=== PATIENT | female | born 1995 | race Caucasian/White ===

== ENCOUNTER → 2017-02-24 | Outpatient (CLI) | payer BC ==
[~2017-02-24] MED LIST: HYDR-4380 PO
--- NOTE | 2017-02-26 09:19 | History & Physical Bridge Note ---
H&P Re-Evaluation Bridge Note: I have examined the patient, reviewed the History & Physical and in the interval since the performance of the History & Physical I have noted the following changes of clinical significance: No changes noted
--- NOTE | 2017-02-26 12:01 | [facility] Operative Report ---
Operative Report Operative Date Feb 26, 2017. Pre-Operative Diagnosis Supination external rotation stage IV equivalent injury left ankle distal fibular fracture Post-Operative Diagnosis Same Procedure(s) Performed Examination under anesthesia and open reduction internal fixation of left distal fibula Surgeon alicia Documentation Coordinator Surgeon(s) sridhar Estimated Blood Loss 10 mL Findings Left distal fibular fracture with widening of the medial clear space Specimens None Drains none Anesthesia laryngeal mask with popliteal block Complication(s) None Disposition Recovery Room / PACU Implants Synthes 6-hole one third tubular locking plate with 7 screws Indications Patient's a 21-year-old female who is a little over 2 weeks out from injury to her left ankle. She was seen while on vacation. She presented a few days ago to the office for evaluation. She has tenderness of the medial ankle joint and also has static widening of the medial clear space indicative of an unstable distal fibular fracture with medial deltoid ligament injury. Treatment options risks and benefits were discussed and she elected to proceed with operative intervention which was advised Description of Procedure Informed consent was obtained. The patient was identified as Carolina Flynn. She identified the operative site as the left ankle and I marked with my initials. A preoperative surgical timeout was performed. Appropriate dose of IV antibiotics was given. She was positioned supine on the operating room table. A tourniquet was applied to left thigh and a bump under the left hip. Leg was prescrubed and then prepped and draped in the usual sterile fashion. DVT prophylaxis was not indicated. The examination under anesthesia with fluoroscopic guidance demonstrated riding of the medial clear space with lateral stress on the distal fibular fracture fragment. Fluoroscopic guidance was utilized throughout the procedure. There was mild swelling of the ankle but skin intact. Limb was exsanguinated with the Esmarch tourniquet inflated to 225 mmHg. A longitudinal incision was made paralleling the distal fibula approximately 10 cm in length. Immediately on not dissecting through the subcutaneous tissues a prominent superficial peroneal nerve was identified coursing from posterior proximal to anterior distal directly across the fracture area. This was carefully dissected out proximally and mobilized. It was protected and retracted with the anterior skin flap. Subperiosteal exposure the fracture was then performed using a combination of sharp and blunt dissection. The fracture site was opened and cleaned of hematoma and early callus formation. More dissection than is typical was done in order to improve mobility of the fracture to enable an adequate anatomic reduction. The anterior calyculus was identified as well as the posterior spike. The fracture site was irrigated. It was then anatomically reduced and held with a bone tenaculum. It was then fixated with a bicortical 3.5 mm screw. This total fracture fragment was only large enough to accept 2 screws. I therefore used a one third tubular locking plate. I prevent the plate affixed to the lateral fibula. I applied one screw proximally and distally to bring the plate down to the bone. These were a 4.0 cancellus screw distally and a 3.5 mm bicortical screw proximally. 2 additional cortical screws were placed proximally and one locking screw was placed in the second hole from the bottom. The fracture was anatomically reduced there was no posterior or medial fracture. No other fractures were identified. The medial clear space was realigned anatomically and did not open up stressing. It was equal to the opposite side of the ankle. The syndesmosis was stressed and was found to be stable. Test Engineer fluoroscopic images were obtained. The tourniquet was let down and meticulous hemostasis was performed with pressure and electrocautery the wound was irrigated with sterile saline in copious fashion. The superficial peroneal nerve was protected throughout the procedure. It was kept moist. It was retracted with the anterior skin flap and 2-0 Vicryl was utilized to close the periosteum over the plate throughout its entire length. The nerve transversed across the front fibula from the most proximal screw to the third most proximal screw where it overlie the plate. The skin was then closed with interrupted 4-0 Vicryl sutures taking care to protect the nerve. The skin was then closed with a running 3-0 Prolene subcuticular stitch. The leg was cleaned with wet and dry sponges and a well-padded posterior splint with the ankle in neutral was applied. The patient was then awakened from anesthesia without difficulty taken to recovery in stable condition there were no specimens or complications counts were correct in the case blood loss was 10 mL. The conclusion operation I spoke the patient's mother and informed her of my findings. Detailed postoperative instructions were given. She'll be nonweightbearing for the time being. She will follow up next week at which time her dressing will be changed and she will be converted to a boot. At that time she will likely be able to begin early range of motion and weightbearing. I attest to the content of the Intraoperative Record and any orders documented therein. Any exceptions are noted below.
== END | disposition home or self-care (01) ==
LOC: C.RDSM 15:42
PROVIDERS: ATTEND Physical Medicine & Rehabilitation Sports Medicine
DX: S82.832A Other fracture of upper and lower end of left fibula, initial encounter for closed fracture (principal); X58.XXXA Exposure to other specified factors, initial encounter; M25.572 Pain in left ankle and joints of left foot

== ENCOUNTER → 2017-02-26 | Day surgery (SDC) | payer BC ==
[2017-02-25 13:16] VITALS: Ht 157.5 cm; Wt 59.1 kg
[~2017-02-26] VITALS: Ht 157.5 cm; Wt 59.1 kg
[~2017-02-26] MED LIST changes: +ATROPINE SULFATE 0.1 MG/ML 5ML SYR IV PRN; +BUPIVACAINE 0.5 % 5 MG/1 ML MPF 30ML VIAL ONE; +BUPIVACAINE/EPINEPHRINE 0.5% MPF 1:200,000 10 ML VIAL ONE; +CEFAZOLIN 1000MG/55 ML D5W IV SCH; +DEXAMETHASONE SOD INJ 4 MG/ML VIAL ONE; +EpHEDrine SULFATE INJ 50 MG/ML AMP IV PRN; +FENTANYL CITRATE INJ 50 MCG/1 ML 2 ML VIAL IV PRN; +FENTANYL CITRATE INJ 50 MCG/1 ML 2 ML VIAL ONE; +KETOROLAC TROMETHAMINE 30 MG/ML VIAL ONE; +LACTATED RINGER'S 1000ML 1,000 ML IV SCH; +LIDOCAINE HCL 2% 2 ML VIAL (20MG/ML) ONE; +MIDAZOLAM HCL 1 MG/ML 2ML VIAL ONE; +MoRPHine SULFATE 2 MG/ML CARP IV PRN; +ONDANSETRON INJ 2 MG/ML 2 ML VIAL IV PRN; +ONDANSETRON INJ 2 MG/ML 2 ML VIAL ONE; +OXYCODONE/ACETAMINOPHEN 5-325 TAB PO PRN; +PATIENT'S ALLERGY INFO NEEDS ENTERED SCH; +PATIENT'S HEIGHT AND/OR WEIGHT NEEDED SCH; +POVIDONE-IODINE OP SOLN 30 ML BTL ONE; +PROMETHAZINE HCL INJ 6.25 MG in SODIUM CHLORIDE 0.9% 50ML 50 ML IV PRN; +PROPOFOL IV EMULSION 10 MG/ML 20 ML VIAL IV ONE; +SODIUM CHLORIDE 0.9% 1000ML 1,000 ML IV SCH
--- NOTE | 2017-02-26 12:04 | Discharge Instructions-SurgCtr ---
Discharge Instructions Date of Service Feb 26, 2017. Visit Reason for Visit: Left Distal Fibula Fx Discharge Discharge Diagnosis / Problem: left distal fibula fracture Discharge Goals Goal(s): Decrease discomfort, Improve function, Increase independence Activity Recommendations Activity Limitations: per Instructions/Follow-up section Weightbearing Status: Left non-weightbearing (lower extremity) Anesthesia . Post Anesthesia Instructions: If you have had General Anesthesia or IV Sedation: * Do not drive today. * Resume driving when surgeon permits. * Do not make important decisions or sign legal documents today. * Call surgeon for: 1. Temperature elevations greater than 101 degrees F. 2. Uncontrollable pain. 3. Excessive bleeding. 4. Persistent nausea and vomiting. 5. Medication intolerance (nausea, vomiting or rash). * For nausea and vomiting use only clear liquids such as: tea, soda, bouillon until nausea subsides, then gradually increase diet as tolerated. * If you have any concerns or questions, call your surgeon's office. If physician is unavailable and it is an emergency, call 911 or go to the nearest emergency room. . Instructions / Follow-Up Instructions / Follow-Up DIET: * Resume previous diet. MEDICATIONS: * Please take your prescriptions as instructed at your pre-op appointment and/ or see medication discharge instructions listed above. * If concerns develop, call your physician's office at . SPECIAL CARE INSTRUCTIONS: * Ice to left ankle as needed for pain and swelling * Elevate left ankle above heart to relieve pain and swelling. * Keep dressing clean, dry, intact. Keep splint on at all times. * NO WEIGHT ON LEFT LEG. Use crutches to assist with ambulation. Okay to use a scooter. * Wiggle toes left foot frequently. Okay for full range of motion of left knee. * Your surgical extremity may be discolored due to prepping agents used on the skin. A bluish-green tint is a normal variant and should not cause alarm. Call your doctor at [phone] if: * Temperature above 101 degrees * Pain not relieved by pain medicine ordered * There is increased drainage or redness from any incision * You have any unanswered questions, problems or concerns. FOLLOW UP VISIT: * If not already scheduled, please call the office at to schedule a follow-up appointment. * You have a follow-up appointment with Dr. Joseph on 03/13/2017 at 10:45 AM. * You will start physical therapy on 03/03/2017 at 3:30 PM. Diet Recommendations Home Diet: no limitations, resume previous diet Procedures Procedures Performed: Left Ankle Open Reduction Internal Fixation Pending Studies Studies pending at discharge: no Medical Emergencies . Who to Call and When: Medical Emergencies: If at any time you feel your situation is an emergency, please call 911 immediately. . Non-Emergent Contact Non-Emergency issues call your: Surgeon Call Non-Emergent contact if: temperature is above 101, your pain is not controlled, your pain is concerning you, wound has increased drainage, wound has increased redness, wound has increased pain, you have any medication questions . . "Provider Documentation" section prepared by Ava Galvan. . [place] Drug Monitoring Program Search Results: patient reviewed within database, no issues identified
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
[2017-02-26 12:48] VITALS: TEMP 36.4
[2017-02-26 13:22] VITALS: BP 112/77; PULSE 63; O2SAT 100
--- NOTE | 2017-02-26 13:22 | Anesthesia Progress Nt - [facility] ---
Anesthesia Post Op Note Date & Time Feb 26, 2017 at 13:21 Vital Signs Pain Intensity: 0 Vital Signs Past 12 Hours Date Time Temp Pulse Resp B/P (MAP) Pulse Ox O2 Delivery O2 Flow Rate FiO2 02/26/17 12:48 36.4 60 16 117/80 (92) 100 Room Air 02/26/17 12:36 59 15 02/26/17 12:36 36.5 67 16 116/71 100 Room Air 02/26/17 12:36 59 15 100 02/26/17 12:35 116/71 02/26/17 12:31 60 15 100 02/26/17 12:31 60 15 02/26/17 12:30 109/76 02/26/17 12:26 61 18 99 02/26/17 12:26 61 18 02/26/17 12:25 116/73 02/26/17 12:21 67 14 02/26/17 12:21 66 14 100 02/26/17 12:20 119/78 02/26/17 12:18 115/69 02/26/17 12:16 70 17 02/26/17 12:16 70 17 100 02/26/17 12:11 73 20 02/26/17 12:11 73 20 126/120 98 02/26/17 12:06 78 15 02/26/17 12:06 78 15 100 02/26/17 12:05 122/81 02/26/17 12:02 116/88 02/26/17 12:01 84 02/26/17 12:01 36.4 88 16 116/88 100 Mask 6 02/26/17 12:01 84 92 02/26/17 09:56 0 02/26/17 09:55 0 02/26/17 09:50 71 24 100 02/26/17 09:50 71 02/26/17 09:46 122/82 02/26/17 09:45 82 17 99 02/26/17 09:45 79 02/26/17 09:40 71 10 118/77 96 02/26/17 09:40 72 02/26/17 09:36 114/81 02/26/17 09:35 75 19 02/26/17 09:34 121/76 02/26/17 08:08 36.8 91 16 108/70 (83) 98 Room Air Notes Mental Status: alert / awake / arousable, participated in evaluation Pt Amnestic to Procedure: Yes Nausea / Vomiting: adequately controlled Pain: adequately controlled Airway Patency, RR, SpO2: stable & adequate BP & HR: stable & adequate Hydration State: stable & adequate Anesthetic Complications: no major complications apparent block working well in pacu
--- NOTE | 2017-03-06 15:24 | [facility] Operative Report ---
Operative Report Operative Date Mar 06, 2017. Pre-Operative Diagnosis Left Ankle Fracture Post-Operative Diagnosis Same Procedure(s) Performed Left Ankle Open Reduction Internal Fixation Surgeon Dr. Edwardo Joseph Fur Blowing Machine Operator Surgeon(s) Ava Galvan PA-C Estimated Blood Loss 10 ml Findings Displaced left distal fibular fracture with widening of the medial clear space Specimens None Drains none Anesthesia laryngeal mask Complication(s) None Disposition Recovery Room / PACU Implants Synthes small fragment screws and plate Indications Patient is a 21-year-old female 2 weeks status post injury to her left ankle. She was seen elsewhere and sought follow-up care with me. Evaluation in the office showed a mildly displaced distal fibular fracture with widening of the medial clear space confirmed with stress radiographs. Operative intervention was recommended and she elected to proceed Description of Procedure She was identified as a police Gee. She identified the operative site as left ankle. I marked with my initials. Preoperative surgical timeout was performed. Appropriate dose of IV antibiotics was given. Informed consent was obtained. DVT prophylaxis with early mobility. The left leg was prescribed prepped and draped in major sterile fashion. A tourniquet was applied to the left thigh she was positioned supine on the operating room table The limb was exsanguinated with the Esmarch tourniquet inflated 225 mmHg. A lateral incision was made paralleling the subcutaneous shaft of the fibula. Initially upon entering the skin the superficial peroneal nerve was identified crossing of the fibula of immediately deep subcutaneous tissues. This was dissected out proximally and distally preserved throughout the procedure. At the end of the procedure it coursed over the upper 3 screws of the fibular plate. After dissecting out the superficial peroneal nerve subperiosteal exposure the fracture site was performed. Since his been 2 weeks since the injury I did a little bit more soft tissue releasing to ensure adequate mobilization of the fracture. The fracture was a simple Lerma B type non- comminuted fracture. The fracture site was opened and cleaned out of soft tissue and hematoma. The fracture was then anatomically reduced after irrigating it and fixated with a 3.5 mm bicortical like screw. A this distal fibular locking plate was selected. I placed one 4.0 cancellus screw distally to secure the plate down to the bone. I placed 1 cortical screw proximally to the same. I then placed a locking screw distally. The distal fracture fragment was small and only 2 screws could be placed into the distal fracture fragment. I therefore had one locking screw and one cancellus screw distally. 2 additional bicortical screws were placed proximally for excellent fixation. The medial clear space was now anatomically aligned and did not open with stressing. The syndesmosis was checked and was stable to stressing. The wound was irrigated with sterile saline. The periosteum and soft tissues were reapproximated over the fibular plate using 0 and 2-0 Vicryl. The nerve was then left to rest on top of this of the level of the upper 3 screws. The skin was then closed with 30 and 4-0 Vicryl with a 3-0 Prolene subcuticular stitch. Steri-Strips were applied. The leg was cleaned and dry sponges a soft sterile dressing was applied with a posterior splint. The ankle was placed in neutral position. The tourniquet was let down prior to wound closure and meticulous hemostasis was performed.. There were no specimens or complications counts were correct in the case. Blood loss was minimal. At the conclusion operations both patient's family and informed of my findings. She'll be in for physical therapy next week at which time she can be converted to a fracture boot for swelling is acceptable. At this time she is to be nonweightbearing but of will allow her to bear weight early on after the surgery and do range of motion. She did not have a medial or posterior fracture. A syndesmosis screw was not needed. Taken was hemostasis was performed with electrocautery I attest to the content of the Intraoperative Record and any orders documented therein. Any exceptions are noted below.
== END | disposition home or self-care (01) ==
LOC: X.SURG 07:57
PROVIDERS: ATTEND Physical Medicine & Rehabilitation Sports Medicine
DX: S82.832A Other fracture of upper and lower end of left fibula, initial encounter for closed fracture (principal); W16.712A Jumping or diving from boat striking water surface causing other injury, initial encounter

== ENCOUNTER → 2017-03-13 | Outpatient (CLI) | payer BC ==
[~2017-03-13] MED LIST changes: -ATROPINE SULFATE 0.1 MG/ML 5ML SYR IV PRN; -BUPIVACAINE 0.5 % 5 MG/1 ML MPF 30ML VIAL ONE; -BUPIVACAINE/EPINEPHRINE 0.5% MPF 1:200,000 10 ML VIAL ONE; -CEFAZOLIN 1000MG/55 ML D5W IV SCH; -DEXAMETHASONE SOD INJ 4 MG/ML VIAL ONE; -EpHEDrine SULFATE INJ 50 MG/ML AMP IV PRN; -FENTANYL CITRATE INJ 50 MCG/1 ML 2 ML VIAL IV PRN; -FENTANYL CITRATE INJ 50 MCG/1 ML 2 ML VIAL ONE; -KETOROLAC TROMETHAMINE 30 MG/ML VIAL ONE; -LACTATED RINGER'S 1000ML 1,000 ML IV SCH; -LIDOCAINE HCL 2% 2 ML VIAL (20MG/ML) ONE; -MIDAZOLAM HCL 1 MG/ML 2ML VIAL ONE; -MoRPHine SULFATE 2 MG/ML CARP IV PRN; -ONDANSETRON INJ 2 MG/ML 2 ML VIAL IV PRN; -ONDANSETRON INJ 2 MG/ML 2 ML VIAL ONE; -OXYCODONE/ACETAMINOPHEN 5-325 TAB PO PRN; -PATIENT'S ALLERGY INFO NEEDS ENTERED SCH; -PATIENT'S HEIGHT AND/OR WEIGHT NEEDED SCH; -POVIDONE-IODINE OP SOLN 30 ML BTL ONE; -PROMETHAZINE HCL INJ 6.25 MG in SODIUM CHLORIDE 0.9% 50ML 50 ML IV PRN; -PROPOFOL IV EMULSION 10 MG/ML 20 ML VIAL IV ONE; -SODIUM CHLORIDE 0.9% 1000ML 1,000 ML IV SCH
== END | disposition home or self-care (01) ==
LOC: C.RDSM 10:45
PROVIDERS: ATTEND Physical Medicine & Rehabilitation Sports Medicine
DX: S82.832A Other fracture of upper and lower end of left fibula, initial encounter for closed fracture (principal); X58.XXXA Exposure to other specified factors, initial encounter

== ENCOUNTER → 2017-04-13 | Outpatient (CLI) | payer BC | END | disposition home or self-care (01) | LOC: C.RDSM 12:15 | PROVIDERS: ATTEND Physical Medicine & Rehabilitation Sports Medicine | DX: S82.832A Other fracture of upper and lower end of left fibula, initial encounter for closed fracture (principal); X58.XXXA Exposure to other specified factors, initial encounter ==